=== PATIENT | female | born 1995 | race Two or more races ===

== ENCOUNTER 2019-02-17 12:09 | Inpatient (IN) | payer MEDICAID ==
[~2019-02-17] VITALS: Ht 152.4 cm; Wt 42.7 kg
--- NOTE | 2019-02-17 13:27 | NUR ---
AJIT MOURA AT BEDSIDE FOR EVAL.
[2019-02-17] MEDS ORDERED: ACETAMINOPHEN ES 500 MG TABLET PO ONE (13:30)
[2019-02-17] MEDS ORDERED: IV NS 0.9% 1,000 ML BAG IV ONE ×2 (13:30→15:30)
[2019-02-17] MEDS ORDERED: ONDANSETRON HCL/PF 4 MG/2 ML VIAL IVP ONE (13:30)
[2019-02-17] MEDS ORDERED: FENTANYL PF 100MCG/2ML AMPUL IV ONE (13:30)
[2019-02-17] MEDS ORDERED: ONDANSETRON HCL/PF 4 MG/2 ML VIAL ONE ×2 (13:36→15:00)
[2019-02-17] MEDS ORDERED: FENTANYL PF 100MCG/2ML AMPUL ONE (13:37)
[2019-02-17 13:40] LABS: BASOPHILS % (AUTO) 0.3 % (0.0-2.0); EOSINOPHILS % (AUTO) 0.5 % (0.0-6.0); HEMATOCRIT 39 % (33-45); HEMOGLOBIN 13.2 g/dL (11.5-14.8); LYMPHOCYTES # (AUTO) 1.9 /CMM (0.8-4.8); LYMPHOCYTES % (AUTO) 13.1 % (20.0-44.0); MEAN CORPUSCULAR HGB CONC 34 g/dl (31.0-36.0); MEAN CORPUSCULAR VOLUME 95 fL (82-100); MONOCYTES # (AUTO) 0.8 /CMM (0.1-1.30); MONOCYTES % (AUTO) 5.3 % (2.0-12.0); NEUTROPHILS # (AUTO) 11.5 /CMM (1.8-8.9); NEUTROPHILS % (AUTO) 80.8 % (43.0-81.0); PLATELET COUNT (AUTO) 239 /CMM (150-450); RED BLOOD CELL COUNT(AUTO) 4.12 MIL/uL (4.0-5.2); WHITE BLOOD COUNT (AUTO) 14.3 K/uL (4.3-11.0)
--- NOTE | 2019-02-17 13:42 | NUR ---
U/S TECH AT BEDSIDE FOR PELVIC ULTRASOUND.
[2019-02-17 13:51] LABS: CALCIUM, SERUM 8.3 mg/dL (8.5-10.1); CREATININE 0.5 mg/dL (0.6-1.3)
[2019-02-17 13:53] LABS: POTASSIUM 2.8 mmol/L (3.5-5.1)
[2019-02-17 13:56] LABS: ALBUMIN 3.2 g/dL (3.4-5.0); BILIRUBIN,DIRECT 0.1 mg/dL (0.0-0.2); BILIRUBIN,TOTAL 0.3 mg/dL (0.2-1.0); TOTAL PROTEIN, SERUM 6.9 g/dL (6.4-8.2)
[2019-02-17] MEDS ORDERED: MAG HYDROX/AL HYDROX/SIMETH 30 ML UDC ONE (14:24)
[2019-02-17] MEDS ORDERED: POTASSIUM CHLORIDE 20 MEQ TAB.PRT.SR PO ONE ×2 (14:25→14:30)
[2019-02-17] MEDS ORDERED: MAG HYDROX/AL HYDROX/SIMETH 30 ML UDC PO ONE (14:30)
[2019-02-17] MEDS: POTASSIUM CHLORIDE 20 MEQ TAB.PRT.SR PO ONE ×2 (14:36→15:07)
[2019-02-17] MEDS ORDERED: ACETAMINOPHEN ES 500 MG TABLET ONE (15:00)
[2019-02-17] MEDS ORDERED: ONDANSETRON HCL/PF 4 MG/2 ML VIAL IV ONE (15:00)
[2019-02-17] MEDS ORDERED: SIMETHICONE 80 MG TAB.CHEW PO ONE (15:30)
[2019-02-17] MEDS ORDERED: POTASSIUM CHLORIDE 10 MEQ/50 ML PREMIXED IVPB FOR PERIPHERAL LINE IV ONE (15:30)
[2019-02-17] MEDS ORDERED: POTASSIUM CL. PREMIX PERIPHER. 50 ML ONE ×2 (15:34→16:29)
[2019-02-17] MEDS ORDERED: SIMETHICONE 80 MG TAB.CHEW ONE (15:35)
[2019-02-17] MEDS ORDERED: IV NS 0.9% 1,000 ML IV PRN (16:23)
[2019-02-17] MEDS ORDERED: MAG HYDROX/AL HYDROX/SIMETH 30 ML UDC PO PRN (16:30)
[2019-02-17] MEDS ORDERED: MAGNESIUM HYDROXIDE 30 ML UDC PO PRN (16:30)
[2019-02-17] MEDS ORDERED: HYDROCODONE/APAP 5/325MG 1 EACH TABLET PO PRN (16:30)
[2019-02-17] MEDS ORDERED: ACETAMINOPHEN 325 MG TABLET PO PRN (16:30)
[2019-02-17] MEDS ORDERED: Z GUARD REMEDY 2 OZ OINT TP PRN (16:30)
[2019-02-17] MEDS ORDERED: ONDANSETRON HCL/PF 4 MG/2 ML VIAL IVP PRN (16:30)
--- NOTE | 2019-02-17 16:49 | NUR ---
[address] [facility]
--- NOTE | 2019-02-17 17:13 | NUR ---
REPORT GIVEN TO LENNOX BUSTILLO. PT AWAITING TRANSFER TO FLOOR.
--- NOTE | 2019-02-17 17:50 | NUR ---
MS PATTERN SHOP SUPERVISOR NOTES ADMITTED PATIENT FROM EMERGENCY ROOM REPORT GIVEN BY EDGAR BUSTILLO. PATIENT ALERT ORIENTED X 3 , NO ACUTE DISTRESS NOTED. BREATHING UNLABORED. NO SOB NOTED. IV ACCESS PATENT OR INTACT. ORIENTED TO THE ROOM. NEEDS ATTENDED AND ANTICIPATED. SAFETY MEASURES IN PLACE. CALL LIGHT WITH IN REACH. WILL CONTINUE TO MONITOR ACCORDINGLY. AND MOTHER AT BEDSIDE.
[2019-02-17 17:55] VITALS: BP 114/66
--- NOTE | 2019-02-17 19:03 | NUR ---
MS FABRICATION AND ASSEMBLY SUPERVISOR NOTES PATIENT STATED SHE WANTS TO LEAVE THE HOSPITAL NOW. EXPLAINED RISKS AND BENEFITS IN LEAVING HOSPITAL AGAINST MEDICAL ADVICE ,VERBALIZED UNDERSTANDINF, PATIENT, AND MOTHER PRESENT AT BEDSIDE, INSISTED ON LEAVING THE HOSPITAL. PATIENT SIGNED AGAINST MEDICAL ADVICE FORM. ALL BELONGINGS ACCOUNTED FOR. PATIENT ALERT ORIENTED X 3 , NO ACUTE DISTRESS NOTED. BREATHING UNLABORED. NO SOB NOTED. IV ACCESS REMOVED, NO BLEEDING, NO REDNESS, NO SWELLING NOTED. NEEDS ATTENDED AND ANTICIPATED. ASSISTED TO THE LOBBY, PICKED UP VIA PRIVATE CARE WITH MOTHER AND IN STABLE CONDITION.
--- NOTE | 2019-02-17 19:03 | NUR ---
addendum: PJ HUBBARD NOTIFIED.
[2019-02-18] MEDS ORDERED: PANTOPRAZOLE 40 MG VIAL IV SCH (09:00)
== END 2019-02-17 19:00 | disposition left against medical advice (07) | DRG 566 ==
LOC: ER 12:12 → MED 17:17
PROVIDERS: ADMIT Internal Medicine; ATTEND Internal Medicine
DX: O21.0 Mild hyperemesis gravidarum (principal); E87.6 Hypokalemia; Z3A.22 22 weeks gestation of pregnancy; O25.12 Malnutrition in pregnancy, second trimester
CPT/HCPCS: 36415; 76705-TC; 76805-TC; 80048-TC; 80076-TC; 83690-TC; 85025-TC; 87081-TC; C9113; G0378; J2405; J3010; J3480; J7030